=== PATIENT | male | born 1955 | race Caucasian/White ===

== ENCOUNTER 2017-06-21 21:32 | Emergency (ER) | END 2017-06-22 00:24 | disposition home or self-care (01) ==

== ENCOUNTER 2018-09-09 22:13 | Inpatient (IN) | payer OTHER ==
[~2018-09-09] VITALS: Ht 170.2 cm; Wt 55.2 kg
[~2018-09-09 22:13] MED LIST: DIC20 PO; ONDA4TAB14 PO
[2018-09-09] MEDS ORDERED: SOD CHLORIDE 0.9% 500 ML IV STA (23:42)
[2018-09-09] MEDS ORDERED: morphine 4 MG/ML VIAL IV STA (23:42)
[2018-09-09] MEDS ORDERED: ONDANSETRON 4 MG INJ IV STA (23:42)
[2018-09-10] MEDS ORDERED: morphine 4 MG/ML VIAL IV STA (03:29)
[2018-09-10] MEDS ORDERED: ONDANSETRON 4 MG INJ IV STA (03:29)
--- NOTE | 2018-09-10 05:18 | ERD ---
ER Documentation Chief Complaint Chief Complaint GENERALIZED AP X 1 DAY HPI Is a 7-year male generalized abdominal pain for 1 day. Said the pain is diffuse nontender nonlocalizing with no exacerbating alleviating factors. Denies any fevers or chills. Denies any nausea vomiting. Denies any other current issues. ROS All systems reviewed and are negative except as per history of present illness. Medications Home Meds Active Scripts Ondansetron (Ondansetron Odt) 4 Mg Tab.rapdis, 4 MG PO Q6H PRN for NAUSEA AND/OR VOMITING, #20 TAB Prov:MELISSA DIOP [employer] 06/21/17 Dicyclomine HCl (Dicyclomine HCl) 20 Mg Tablet, 1 TAB PO Q6, #20 Prov:MELISSA DIOP [employer] 06/21/17 Reported Medications [none] Unknown Strength No Conflict Check 06/21/17 Allergies Allergies: Coded Allergies: No Known Allergy (Unverified , 06/21/17) PMhx/Soc Medical and Surgical Hx: pt denies Medical Hx, pt denies Surgical Hx Hx Alcohol Use: No Hx Substance Use: No Hx Tobacco Use: Yes Smoking Status: Never smoker Physical Exam Vitals Vital Signs Date Temp Pulse Resp B/P (MAP) Pulse Ox O2 O2 Flow FiO2 Time Delivery Rate 09/10/18 57 16 149/80 98 Room Air 04:39 (103) 09/10/18 98.6 67 18 167/80 97 02:28 (109) 09/09/18 98.6 89 18 140/79 97 22:16 (99) Physical Exam Const: No acute distress Head: Atraumatic Eyes: Normal Conjunctiva ENT: Normal External Ears, Nose and Mouth. Neck: Full range of motion. No meningismus. Resp: Clear to auscultation bilaterally Cardio: Regular rate and rhythm, no murmurs Abd: Soft, non tender, non distended. Normal bowel sounds Skin: No petechiae or rashes Back: No midline or flank tenderness Ext: No cyanosis, or edema Neur: Awake and alert Psych: Normal Mood and Affect Result Diagram: 09/09/18 3546 09/09/18 1466 Results 24 hrs Laboratory Tests Test 09/09/18 23:48 09/09/18 23:51 White Blood Count 12.3 10^3/ul Red Blood Count 5.22 10^6/ul Hemoglobin 14.1 g/dl Hematocrit 39.7 % Mean Corpuscular Volume 76.1 fl Mean Corpuscular Hemoglobin 27.0 pg Mean Corpuscular Hemoglobin Concent 35.5 g/dl Red Cell Distribution Width 14.8 % Platelet Count 354 10^3/UL Mean Platelet Volume 9.3 fl Immature Granulocytes % 0.200 % Neutrophils % 70.2 % Lymphocytes % 14.2 % Monocytes % 8.3 % Eosinophils % 6.6 % Basophils % 0.5 % Nucleated Red Blood Cells % 0.0 /100WBC Immature Granulocytes # 0.030 10^3/ul Neutrophils # 8.7 10^3/ul Lymphocytes # 1.8 10^3/ul Monocytes # 1.0 10^3/ul Eosinophils # 0.8 10^3/ul Basophils # 0.1 10^3/ul Nucleated Red Blood Cells # 0.0 10^3/ul Urine Color YELLOW Urine Clarity SLIGHTLY CLOUDY Urine pH 5.0 Urine Specific [place] 1.024 Urine Ketones 1+ mg/dL Urine Nitrite NEGATIVE mg/dL Urine Bilirubin NEGATIVE mg/dL Urine Urobilinogen NEGATIVE mg/dL Urine Leukocyte Esterase NEGATIVE [place]/ul Urine Microscopic RBC 3 /HPF Urine Microscopic WBC 0 /HPF Urine Mucus FEW /HPF Urine Hemoglobin 2+ mg/dL Urine Glucose NEGATIVE mg/dL Urine Total Protein NEGATIVE mg/dl Sodium Level 136 mmol/L Potassium Level 4.3 mmol/L Chloride Level 102 mmol/L Carbon Dioxide Level 24 mmol/L Anion Gap 10 Blood Urea Nitrogen 12 mg/dl Creatinine 0.81 mg/dl Est Glomerular Filtrat Rate mL/min > 60 mL/min Glucose Level 121 mg/dl Calcium Level 9.6 mg/dl Total Bilirubin 0.5 mg/dl Direct Bilirubin 0.00 mg/dl Indirect Bilirubin 0.5 mg/dl Aspartate Amino Transf (AST/SGOT) 43 IU/L Alanine Aminotransferase (ALT/SGPT) 25 IU/L Alkaline Phosphatase 111 IU/L Total Protein 8.2 g/dl Albumin 4.6 g/dl Globulin 3.60 g/dl Albumin/Globulin Ratio 1.27 Lipase 68 U/L Current Medications Medications Dose Sig/Lester Start Time Status Last (Trade) Ordered Route PRN Stop Time Admin Dose Reason Admin Sodium 500 ml @ Q1H STAT 09/09/18 DC 6/10/19 Chloride 500 mls/hr IV 23:42 00:14 09/10/18 00:41 Morphine 4 mg ONCE STAT 09/09/18 DC 09/10/18 Sulfate IV 23:42 09/09/18 00:14 (morphine) 23:43 Ondansetron 4 mg ONCE STAT 09/09/18 DC 09/10/18 HCl (Zofran IV 23:42 09/09/18 00:14 Inj) 23:43 Morphine 4 mg ONCE STAT 09/10/18 DC 09/10/18 Sulfate IV 03:29 03:35 (morphine) 09/10/18 03:30 Ondansetron 4 mg ONCE STAT 09/10/18 DC 09/10/18 HCl (Zofran IV 03:29 03:35 Inj) 09/10/18 03:30 Procedures/MDM Chest X-ray 1V Interpreted by me: Soft Tissue: No acute a bnormalities Bones: No acute abnormalities Mediastinum/Cardiac Silhouette/Lungs: [No acute abnormalities] Medical decision makin male with diffuse intractable abdominal pain. Even with a negative CT, I feel the patient is admitted further evaluation management given his continued pain despite optimal pain medication therapy here in the ER. Hospitalist made aware of admission. Departure Diagnosis: Primary Impression: Abdominal pain Abdominal location: unspecified location Qualified Codes: R10.9 - Unspecified abdominal pain Condition: Serious DENNISE MA Sep 10, 2018 05:18
[2018-09-10] MEDS ORDERED: ACETAMINOPHEN 325 MG TAB PO PRN ×2 (05:30→06:00)
[2018-09-10] MEDS ORDERED: ONDANSETRON 4 MG INJ IV PRN ×2 (05:30→06:00)
--- NOTE | 2018-09-10 05:58 | HP ---
Date/Time of Note Date/Time of Note DATE: 09/10/18 TIME: 05:57 Assessment/Plan VTE Prophylaxis SCD applied (from Nsg): No SCD contraindicated: other Pharmacological prophylaxis: heparin Lines/Catheters IV Catheter Type (from Nrs): [place] Assessment/Plan Hospital Course A/P: 63-year male past medical history of possible gastroparesis, who complains of generalized abdominal pain for 1 day. 1. Abdominal pain: Again unclear what the sources since his CT scan did not show any acute findings. Patient does have a prior history of gastroparesis -Admit patient, continue pain control medications, check TSH A1c lipid panel -We will obtain GI consult order for stool occult test. Result Diagram: 09/09/18 1513 09/09/18 2351 Results 24hrs Laboratory Tests Test 09/09/18 23:48 09/09/18 23:51 White Blood Count 12.3 H Red Blood Count 5.22 # Hemoglobin 14.1 # Hematocrit 39.7 #L Mean Corpuscular Volume 76.1 L Mean Corpuscular Hemoglobin 27.0 L Mean Corpuscular Hemoglobin Concent 35.5 Red Cell Distribution Width 14.8 H Platelet Count 354 Mean Platelet Volume 9.3 Immature Granulocytes % 0.200 Neutrophils % 70.2 Lymphocytes % 14.2 L Monocytes % 8.3 Eosinophils % 6.6 Basophils % 0.5 Nucleated Red Blood Cells % 0.0 Immature Granulocytes # 0.030 Neutrophils # 8.7 H Lymphocytes # 1.8 Monocytes # 1.0 H Eosinophils # 0.8 H Basophils # 0.1 Nucleated Red Blood Cells # 0.0 Urine Color YELLOW Urine Clarity SLIGHTLY CLOUDY A Urine pH 5.0 Urine Specific [place] 1.024 Urine Ketones 1+ H Urine Nitrite NEGATIVE Urine Bilirubin NEGATIVE Urine Urobilinogen NEGATIVE Urine Leukocyte Esterase NEGATIVE Urine Microscopic RBC 3 Urine Microscopic WBC 0 Urine Mucus FEW A Urine Hemoglobin 2+ H Urine Glucose NEGATIVE Urine Total Protein NEGATIVE Sodium Level 136 Potassium Level 4.3 Chloride Level 102 Carbon Dioxide Level 24 Anion Gap 10 Blood Urea Nitrogen 12 Creatinine 0.81 Est Glomerular Filtrat Rate mL/min > 60 Glucose Level 121 Calcium Level 9.6 Total Bilirubin 0.5 Direct Bilirubin 0.00 Indirect Bilirubin 0.5 Aspartate Amino Transf (AST/SGOT) 43 Alanine Aminotransferase (ALT/SGPT) 25 Alkaline Phosphatase 111 Total Protein 8.2 H Albumin 4.6 Globulin 3.60 H Albumin/Globulin Ratio 1.27 Lipase 68 HPI/ROS Admit Date/Time Admit Date/Time Hx of Present Illness 63-year male past medical history of possible gastroparesis, who complains of generalized abdominal pain for 1 day. Patient stated the symptoms started sort of suddenly, had some nausea symptoms. No vomiting, no fevers or chills diarrhea constipation upper or lower GI bleeding, no chest pain shortness of breath. Patient describes the pain as diffuse nontender nonlocalizing with no exacerbating alleviating factors. When the patient came in today he had a CT scan abdomen pelvis performed that did not show any acute findings. His white blood cell count was slightly elevated however at 12.3. PMH/Family/Social Past Medical History Medications Current Medications Ondansetron HCl (Zofran Inj) 4 mg BRIDGE ORDER PRN IV NAUSEA/VOMITING; Start 09/10/18 at 05:30; Stop 09/11/18 at 05:29 Acetaminophen (Tylenol Tab) 650 mg ER BRIDGE PRN PO .MILD PAIN 1-3 OR TEMP; Start 09/10/18 at 05:30; Stop 09/11/18 at 05:29 IV Flush (NS 3 ml) 3 ml PER PROTOCOL IV ; Start 09/10/18 at 06:00; Status UNV Ondansetron HCl (Zofran Inj) 4 mg Q6H PRN IV NAUSEA/VOMITING; Start 09/10/18 at 06:00; Status UNV Acetaminophen (Tylenol Tab) 650 mg Q6H PRN PO .PAIN 1-3 OR TEMP; Start 09/10/18 at 06:00; Status UNV Acetaminophen/ Hydrocodone Bitart ([place] (5/325)) 1 tab Q6H PRN PO .MOD PAIN 4- 6; Start 09/10/18 at 06:00; Status UNV Morphine Sulfate (morphine) 2 mg Q4H PRN IV .SEVERE PAIN 7-10; Start 09/10/18 at 06:00; Status UNV Docusate Sodium (Colace) 100 mg Q12H PRN PO .CONSTIPATION; Start 09/10/18 at 06:00; Status UNV Magnesium Hydroxide (Milk Of Mag) 30 ml DAILY PRN PO .CONSTIPATION; Start 09/10/18 at 06:00; Status UNV Pantoprazole (Protonix Iv) 40 mg DAILY@06 IV ; Start 09/10/18 at 06:00; Status UNV Heparin Sodium (Porcine) (Heparin (5000 Units/1ml)) 5,000 unit Q12 SC ; Start 09/10/18 at 09:00; Status UNV Sodium Chloride 1,000 ml @ 75 mls/hr [id number] IV ; Start 09/10/18 at 05:49; Status UNV Lorazepam (Ativan) 0.5 mg Q6H PRN IV ANXIETY; Start 09/10/18 at 06:00; Status UNV Albuterol/ Ipratropium (Duoneb) 3 ml Q4H RESP THERAPY PRN HHN SHORTNESS OF BREATH; Start 09/10/18 at 06:00; Status UNV Hydralazine HCl (Apresoline) 10 mg Q6H PRN IV ELEVATED BLOOD PRESSURE; Start 09/10/18 at 06:00; Status UNV Nitroglycerin (Nitroglycerin (Sl Tab) 0.4 Mg) 1 tab Q5M PRN SL ANGINA; Start 09/10/18 at 06:00; Status UNV Coded Allergies: No Known Allergy (Unverified , 06/21/17) Social History Alcohol Use: none Smoking Status: Unknown if ever smoked Drug Use: none Exam/Review of Systems Vital Signs Vitals Vital Signs Date Temp Pulse Resp B/P (MAP) Pulse Ox O2 O2 Flow FiO2 Time Delivery Rate 09/10/18 57 16 149/80 98 Room Air 04:39 (103) 09/10/18 98.6 02:28 Exam Exam Gen: Lying in bed, no acute distress Head: Atraumatic. Eyes: Normal Conjunctiva. ENT: Normal External Ears, Nose and Mouth. Neck: Full range of motion. No meningismus. Resp: Clear to auscultation bilaterally. Cardio: Regular rate and rhythm. Abd: Soft, nondistended, normal bowel sounds, some tenderness to palpation epigastric area Ext: No lower extremity edema bilaterally Neuro: No focal deficits NADER DAN Sep 10, 2018 05:58
[2018-09-10] MEDS ORDERED: hydrALAzine 20 MG INJ IV PRN (06:00)
[2018-09-10] MEDS ORDERED: MAGNESIUM HYDROXIDE 30ML CUP PO PRN (06:00)
[2018-09-10] MEDS ORDERED: NITROGLYCERIN (SL) 0.4 MG TAB SL PRN (06:00)
[2018-09-10] MEDS ORDERED: FAMOTIDINE 20 MG INJ IV SCH (06:00)
[2018-09-10] MEDS ORDERED: DOCUSATE SODIUM 100 MG CAP PO PRN (06:00)
[2018-09-10] MEDS ORDERED: ALBUTEROL/IPRATROPIUM (NEB) 3 ML AMP HHN PRN (06:00)
[2018-09-10] MEDS ORDERED: LORAZEPAM 2 MG INJ IV PRN (06:00)
[2018-09-10] MEDS ORDERED: NACL 0.9% 3 ML SYG IV SCH (06:00)
[2018-09-10] MEDS: morphine 2 MG INJ IV PRN ×3 (06:57→20:49)
[2018-09-10 09:15] VITALS: BP 167/103; PULSE 60; RESP 18
[2018-09-10 09:30] VITALS: Ht 170.2 cm; Wt 55.2 kg
[2018-09-10] MEDS: SOD CHLORIDE 0.45% 1,000 ML IV SCH ×3 (09:58→23:47)
[2018-09-10 10:00] VITALS: BP 182/86; PULSE 68; RESP 18
[2018-09-10] MEDS: HEPARIN 5,000 UNIT/1 ML VIAL SC SCH ×2 (10:14→21:00)
[2018-09-10 10:30] VITALS: BP 114/68; PULSE 70; RESP 18
[2018-09-10 11:00] VITALS: BP 128/60; PULSE 66; RESP 18
--- NOTE | 2018-09-10 12:06 | PN ---
Date/Time of Note Date/Time of Note DATE: 09/10/18 TIME: 12:00 Assessment/Plan VTE Prophylaxis SCD applied (from Nsg): No SCD contraindicated: low risk/ambulating Pharmacological prophylaxis: NA/contraindicated Pharm contraindication: low risk/ambulating Lines/Catheters IV Catheter Type (from Nrsg): Peripheral IV Urinary Cath still in place: No Assessment/Plan Assessment/Plan 1. Acute abdominal pain - unsure etiology at this time - GI consulted for further recommendations - concern for gastroparesis but had BM this am without any issues - FOBT ordered but denies any dean blood in stool - CT A/P negative for acute abnormalities 2. ? h/o gastroparesis - A1c ordered to assess for Diabetes 3. Disposition - pending GI consultation - will start on clear diet and monitor for tolerance prior to advancing Result Diagram: 09/09/18 2348 09/09/18 2351 Results 24hrs Laboratory Tests Test 09/09/18 23:48 09/09/18 23:51 09/10/18 06:43 White Blood Count 12.3 H Red Blood Count 5.22 # Hemoglobin 14.1 # Hematocrit 39.7 #L Mean Corpuscular Volume 76.1 L Mean Corpuscular Hemoglobin 27.0 L Mean Corpuscular 35.5 Hemoglobin Concent Red Cell Distribution Width 14.8 H Platelet Count 354 Mean Platelet Volume 9.3 Immature Granulocytes % 0.200 Neutrophils % 70.2 Lymphocytes % 14.2 L Monocytes % 8.3 Eosinophils % 6.6 Basophils % 0.5 Nucleated Red Blood Cells % 0.0 Immature Granulocytes # 0.030 Neutrophils # 8.7 H Lymphocytes # 1.8 Monocytes # 1.0 H Eosinophils # 0.8 H Basophils # 0.1 Nucleated Red Blood Cells # 0.0 Urine Color YELLOW Urine Clarity SLIGHTLY CLOUDY A Urine pH 5.0 Urine Specific [place] 1.024 Urine Ketones 1+ H Urine Nitrite NEGATIVE Urine Bilirubin NEGATIVE Urine Urobilinogen NEGATIVE Urine Leukocyte Esterase NEGATIVE Urine Microscopic RBC 3 Urine Microscopic WBC 0 Urine Mucus FEW A Urine Hemoglobin 2+ H Urine Glucose NEGATIVE Urine Total Protein NEGATIVE Sodium Level 136 Potassium Level 4.3 Chloride Level 102 Carbon Dioxide Level 24 Anion Gap 10 Blood Urea Nitrogen 12 Creatinine 0.81 Est Glomerular Filtrat > 60 Rate mL/min Glucose Level 121 Calcium Level 9.6 Total Bilirubin 0.5 Direct Bilirubin 0.00 Indirect Bilirubin 0.5 Aspartate Amino 43 Transf (AST/SGOT) Alanine 25 Aminotransferase (ALT/SGPT) Alkaline Phosphatase 111 Total Protein 8.2 H Albumin 4.6 Globulin 3.60 H Albumin/Globulin Ratio 1.27 Lipase 68 Prothrombin Time 13.1 Prothrombin Time Ratio 1.0 INR International 0.98 Normalized Ratio Activated Partial Thromboplast 28.0 Time Free Thyroxine 1.15 Subjective 24 Hr Interval Summary Free Text/Dictation Patient states abdominal pain has improved slightly. Did admit to this am. Exam/Review of Systems Exam Vitals Vital Signs Date Temp Pulse Resp B/P (MAP) Pulse Ox O2 O2 Flow FiO2 Time Delivery Rate 09/10/18 98.9 72 16 166/72 98 Room Air 09:06 (103) Exam General: no acute distress. answering questions appropriately Neck: supple Chest: nontender CVS: S1, S2, regular rate and rhythm. no murmurs Lungs: clear to auscultation bilaterally. no wheezing or rhonchi Abd: soft, mild lower quadrant tenderness, nondistended. no rebound or guarding. bowel sounds present diffusely Ext: moving all extremities. no cyanosis, clubbing, or edema Skin: warm, dry. no rashes or lesions appreciated Results Results 24hrs Laboratory Tests Test 09/09/18 23:48 09/09/18 23:51 09/10/18 06:43 White Blood Count 12.3 H Red Blood Count 5.22 # Hemoglobin 14.1 # Hematocrit 39.7 #L Mean Corpuscular Volume 76.1 L Mean Corpuscular Hemoglobin 27.0 L Mean Corpuscular 35.5 Hemoglobin Concent Red Cell Distribution Width 14.8 H Platelet Count 354 Mean Platelet Volume 9.3 Immature Granulocytes % 0.200 Neutrophils % 70.2 Lymphocytes % 14.2 L Monocytes % 8.3 Eosinophils % 6.6 Basophils % 0.5 Nucleated Red Blood Cells % 0.0 Immature Granulocytes # 0.030 Neutrophils # 8.7 H Lymphocytes # 1.8 Monocytes # 1.0 H Eosinophils # 0.8 H Basophils # 0.1 Nucleated Red Blood Cells # 0.0 Urine Color YELLOW Urine Clarity SLIGHTLY CLOUDY A Urine pH 5.0 Urine Specific [place] 1.024 Urine Ketones 1+ H Urine Nitrite NEGATIVE Urine Bilirubin NEGATIVE Urine Urobilinogen NEGATIVE Urine Leukocyte Esterase NEGATIVE Urine Microscopic RBC 3 Urine Microscopic WBC 0 Urine Mucus FEW A Urine Hemoglobin 2+ H Urine Glucose NEGATIVE Urine Total Protein NEGATIVE Sodium Level 136 Potassium Level 4.3 Chloride Level 102 Carbon Dioxide Level 24 Anion Gap 10 Blood Urea Nitrogen 12 Creatinine 0.81 Est Glomerular Filtrat > 60 Rate mL/min Glucose Level 121 Calcium Level 9.6 Total Bilirubin 0.5 Direct Bilirubin 0.00 Indirect Bilirubin 0.5 Aspartate Amino 43 Transf (AST/SGOT) Alanine 25 Aminotransferase (ALT/SGPT) Alkaline Phosphatase 111 Total Protein 8.2 H Albumin 4.6 Globulin 3.60 H Albumin/Globulin Ratio 1.27 Lipase 68 Prothrombin Time 13.1 Prothrombin Time Ratio 1.0 INR International 0.98 Normalized Ratio Activated Partial Thromboplast 28.0 Time Free Thyroxine 1.15 Medications Medication Current Medications IV Flush (NS 3 ml) 3 ml PER PROTOCOL IV ; Start 09/10/18 at 06:00 Ondansetron HCl (Zofran Inj) 4 mg Q6H PRN IV NAUSEA/VOMITING; Start 09/10/18 at 06:00 Acetaminophen (Tylenol Tab) 650 mg Q6H PRN PO .PAIN 1-3 OR TEMP; Start 09/10/18 at 06:00 Acetaminophen/ Hydrocodone Bitart ([place] (5/325)) 1 tab Q6H PRN PO .MOD PAIN 4- 6; Start 09/10/18 at 06:00 Morphine Sulfate (morphine) 2 mg Q4H PRN IV .SEVERE PAIN 7-10 Last administered on 09/10/18at 11:45; Admin Dose 2 MG; Start 09/10/18 at 06:00 Docusate Sodium (Colace) 100 mg Q12H PRN PO .CONSTIPATION; Start 09/10/18 at 06:00 Magnesium Hydroxide (Milk Of Mag) 30 ml DAILY PRN PO .CONSTIPATION; Start 09/10/18 at 06:00 Famotidine (Pepcid Iv) 40 mg DAILY@06 IV ; Start 09/10/18 at 06:00 Heparin Sodium (Porcine) (Heparin (5000 Units/1ml)) 5,000 unit Q12 SC Last administered on 09/10/18at 10:14; Admin Dose 5,000 UNIT; Start 09/10/18 at 09:00 Sodium Chloride 1,000 ml @ 75 mls/hr [id number] IV Last administered on 09/10/18at 09:58; Admin Dose 75 MLS/HR; Start 09/10/18 at 05:49 Lorazepam (Ativan) 0.5 mg Q6H PRN IV ANXIETY; Start 09/10/18 at 06:00 Albuterol/ Ipratropium (Duoneb) 3 ml Q4H RESP THERAPY PRN HHN SHORTNESS OF BREATH; Start 09/10/18 at 06:00 Hydralazine HCl (Apresoline) 10 mg Q6H PRN IV ELEVATED BLOOD PRESSURE Last administered on 09/10/18at 10:17; Admin Dose 10 MG; Start 09/10/18 at 06:00 Nitroglycerin (Nitroglycerin (Sl Tab) 0.4 Mg) 1 tab Q5M PRN SL ANGINA; Start 09/10/18 at 06:00 NORMAN CUEVAS MD Sep 10, 2018 12:06
[2018-09-10 15:07] VITALS: BP 159/75; PULSE 82; RESP 19
[2018-09-10] MEDS: HYDROCODONE/APAP (5/325) TAB PO PRN ×2 (15:16→22:38)
--- NOTE | 2018-09-10 17:57 | CONS ---
Assessment/Plan Assessment/Plan Hospital Course (Demo Recall) Assessment: Epigastric pain - R/o PUD vs gastritis vs other Questionable history of gastroparesis Plan: Stop H2 iggy change to PPI Add Reglan 10 mg IV q6hrs Order gastric emptying study in am- pending results pt may need EGD in near future Patient seen in collaboration with Dr. Coyle CC: KAYLEIGH COYLE MD ; Consultation Date/Type/Reason Admit Date/Time Date of Consultation: Sep 10, 2018 Type of Consult GI Reason for Consultation Abdominal pain Date/Time of Note DATE: 09/10/18 TIME: 17:51 Hx of Present Illness This is a 63-year-old male some documentation of possible gastroparesis who presented to the hospital with complaints of epigastric pain x1 day. Patient states he woke up at 4:00 in the morning with severe epigastric pain however pain improved he is able to go to work during the day unfortunately the pain became progressively worsening came to the ED for further evaluation. Here work-up included a CT abdomen pelvis which showed no acute abnormalities identified within the abdomen and pelvis labs were obtained showing mild leukocytosis a WBC of 12.3, normal hemoglobin however he does have microcytic indices, INR is within normal limits and normal LFTs. Currently denies nausea/vomiting, melena, hematochezia, diarrhea, or constipation. He has never had an upper endoscopy. Patient states he had a colonoscopy about 5 years ago per patient results were negative. Review of Systems: A 12 system, review was conducted and is negative except as noted in the HPI or here. Past Medical History Home Meds Discontinued Reported Medications [none] Unknown Strength No Conflict Check 06/21/17 Discontinued Scripts Ondansetron (Ondansetron Odt) 4 Mg Tab.rapdis, 4 MG PO Q6H PRN for NAUSEA AND/OR VOMITING, #20 TAB Prov:MELISSA DIOP SHIPPING RECEIVING CLERK 06/21/17 Dicyclomine HCl (Dicyclomine HCl) 20 Mg Tablet, 1 TAB PO Q6, #20 Prov:MELISSA DIOP SHIPPING RECEIVING CLERK 06/21/17 Medications Current Medications IV Flush (NS 3 ml) 3 ml PER PROTOCOL IV ; Start 09/10/18 at 06:00 Ondansetron HCl (Zofran Inj) 4 mg Q6H PRN IV NAUSEA/VOMITING; Start 09/10/18 at 06:00 Acetaminophen (Tylenol Tab) 650 mg Q6H PRN PO .PAIN 1-3 OR TEMP; Start 09/10/18 at 06:00 Acetaminophen/ Hydrocodone Bitart ([place] (5/325)) 1 tab Q6H PRN PO .MOD PAIN 4- 6 Last administered on 09/10/18at 15:16; Admin Dose 1 TAB; Start 09/10/18 at 06:00 Morphine Sulfate (morphine) 2 mg Q4H PRN IV .SEVERE PAIN 7-10 Last administered on 09/10/18at 11:45; Admin Dose 2 MG; Start 09/10/18 at 06:00 Docusate Sodium (Colace) 100 mg Q12H PRN PO .CONSTIPATION; Start 09/10/18 at 06:00 Magnesium Hydroxide (Milk Of Mag) 30 ml DAILY PRN PO .CONSTIPATION; Start 09/10/18 at 06:00 Famotidine (Pepcid Iv) 40 mg DAILY@06 IV ; Start 09/10/18 at 06:00 Heparin Sodium (Porcine) (Heparin (5000 Units/1ml)) 5,000 unit Q12 SC Last administered on 09/10/18at 10:14; Admin Dose 5,000 UNIT; Start 09/10/18 at 09:00 Sodium Chloride 1,000 ml @ 75 mls/hr [id number] IV Last administered on 09/10/18at 09:58; Admin Dose 75 MLS/HR; Start 09/10/18 at 05:49 Lorazepam (Ativan) 0.5 mg Q6H PRN IV ANXIETY; Start 09/10/18 at 06:00 Albuterol/ Ipratropium (Duoneb) 3 ml Q4H RESP THERAPY PRN HHN SHORTNESS OF BREATH; Start 09/10/18 at 06:00 Hydralazine HCl (Apresoline) 10 mg Q6H PRN IV ELEVATED BLOOD PRESSURE Last administered on 09/10/18at 10:17; Admin Dose 10 MG; Start 09/10/18 at 06:00 Nitroglycerin (Nitroglycerin (Sl Tab) 0.4 Mg) 1 tab Q5M PRN SL ANGINA; Start 09/10/18 at 06:00 Allergies: Coded Allergies: No Known Allergy (Unverified , 09/10/18) Social History Alcohol Use: none Smoking Status: Current every day smoker Drug Use: none Exam/Review of Systems Exam Vitals Vital Signs Date Temp Pulse Resp B/P (MAP) Pulse Ox O2 O2 Flow FiO2 Time Delivery Rate 09/10/18 98.1 82 19 159/75 99 15:07 (103) 09/10/18 Room Air 09:06 Exam PHYSICAL EXAMINATION: GENERAL: Alert & oriented x 3, in no acute distress SKIN: No lesions. HEAD: Normocephalic, atraumatic, no tenderness. EYES: Pupils equal reactive to light , no discharge. EARS/NOSE AND THROAT: Ears normal, nose normal. NECK: Supple, no masses. CHEST: Inspection within normal limits. CARDIOVASCULAR: Heart: Regular rate and rhythm RESPIRATORY: Lungs clear to auscultation and percussion, no wheezing, no rubs GASTROINTESTINAL AND LIVER: Abdomen: Soft, epigastric tenderness, non-distended, no hernias, no masses, normoactive bowel sounds. Rectal: Deferred. EXTREMITIES: No cyanosis, clubbing or edema. Results Result Diagram: 09/09/18 2348 09/09/18 2351 Results 24hrs Laboratory Tests Test 09/09/18 23:48 09/09/18 23:51 09/10/18 06:43 White Blood Count 12.3 H Red Blood Count 5.22 # Hemoglobin 14.1 # Hematocrit 39.7 #L Mean Corpuscular Volume 76.1 L Mean Corpuscular Hemoglobin 27.0 L Mean Corpuscular 35.5 Hemoglobin Concent Red Cell Distribution Width 14.8 H Platelet Count 354 Mean Platelet Volume 9.3 Immature Granulocytes % 0.200 Neutrophils % 70.2 Lymphocytes % 14.2 L Monocytes % 8.3 Eosinophils % 6.6 Basophils % 0.5 Nucleated Red Blood Cells % 0.0 Immature Granulocytes # 0.030 Neutrophils # 8.7 H Lymphocytes # 1.8 Monocytes # 1.0 H Eosinophils # 0.8 H Basophils # 0.1 Nucleated Red Blood Cells # 0.0 Urine Color YELLOW Urine Clarity SLIGHTLY CLOUDY A Urine pH 5.0 Urine Specific [place] 1.024 Urine Ketones 1+ H Urine Nitrite NEGATIVE Urine Bilirubin NEGATIVE Urine Urobilinogen NEGATIVE Urine Leukocyte Esterase NEGATIVE Urine Microscopic RBC 3 Urine Microscopic WBC 0 Urine Mucus FEW A Urine Hemoglobin 2+ H Urine Glucose NEGATIVE Urine Total Protein NEGATIVE Sodium Level 136 Potassium Level 4.3 Chloride Level 102 Carbon Dioxide Level 24 Anion Gap 10 Blood Urea Nitrogen 12 Creatinine 0.81 Est Glomerular Filtrat > 60 Rate mL/min Glucose Level 121 Calcium Level 9.6 Total Bilirubin 0.5 Direct Bilirubin 0.00 Indirect Bilirubin 0.5 Aspartate Amino 43 Transf (AST/SGOT) Alanine 25 Aminotransferase (ALT/SGPT) Alkaline Phosphatase 111 Total Protein 8.2 H Albumin 4.6 Globulin 3.60 H Albumin/Globulin Ratio 1.27 Lipase 68 Prothrombin Time 13.1 Prothrombin Time Ratio 1.0 INR International 0.98 Normalized Ratio Activated Partial Thromboplast 28.0 Time Free Thyroxine 1.15 Medications Medication Current Medications IV Flush (NS 3 ml) 3 ml PER PROTOCOL IV ; Start 09/10/18 at 06:00 Ondansetron HCl (Zofran Inj) 4 mg Q6H PRN IV NAUSEA/VOMITING; Start 09/10/18 at 06:00 Acetaminophen (Tylenol Tab) 650 mg Q6H PRN PO .PAIN 1-3 OR TEMP; Start 09/10/18 at 06:00 Acetaminophen/ Hydrocodone Bitart ([place] (5/325)) 1 tab Q6H PRN PO .MOD PAIN 4- 6 Last administered on 09/10/18at 15:16; Admin Dose 1 TAB; Start 09/10/18 at 06:00 Morphine Sulfate (morphine) 2 mg Q4H PRN IV .SEVERE PAIN 7-10 Last administered on 09/10/18at 11:45; Admin Dose 2 MG; Start 09/10/18 at 06:00 Docusate Sodium (Colace) 100 mg Q12H PRN PO .CONSTIPATION; Start 09/10/18 at 06:00 Magnesium Hydroxide (Milk Of Mag) 30 ml DAILY PRN PO .CONSTIPATION; Start 09/10/18 at 06:00 Famotidine (Pepcid Iv) 40 mg DAILY@06 IV ; Start 09/10/18 at 06:00 Heparin Sodium (Porcine) (Heparin (5000 Units/1ml)) 5,000 unit Q12 SC Last adm inistered on 09/10/18at 10:14; Admin Dose 5,000 UNIT; Start 09/10/18 at 09:00 Sodium Chloride 1,000 ml @ 75 mls/hr [id number] IV Last administered on 09/10/18at 09:58; Admin Dose 75 MLS/HR; Start 09/10/18 at 05:49 Lorazepam (Ativan) 0.5 mg Q6H PRN IV ANXIETY; Start 09/10/18 at 06:00 Albuterol/ Ipratropium (Duoneb) 3 ml Q4H RESP THERAPY PRN HHN SHORTNESS OF BREATH; Start 09/10/18 at 06:00 Hydralazine HCl (Apresoline) 10 mg Q6H PRN IV ELEVATED BLOOD PRESSURE Last administered on 09/10/18at 10:17; Admin Dose 10 MG; Start 09/10/18 at 06:00 Nitroglycerin (Nitroglycerin (Sl Tab) 0.4 Mg) 1 tab Q5M PRN SL ANGINA; Start 09/10/18 at 06:00 SALTY POE Sep 10, 2018 17:56
[2018-09-10 19:46] VITALS: BP 139/70; PULSE 77; RESP 18
[2018-09-10] MEDS: METOCLOPRAMIDE 10 MG INJ IV SCH (23:47)
[2018-09-11] MEDS: ALBUTEROL/IPRATROPIUM (NEB) 3 ML AMP HHN SCH ×6 (00:24→20:07)
[2018-09-11 02:04] VITALS: BP 115/57; PULSE 83; RESP 18
[2018-09-11] MEDS: HYDROCODONE/APAP (5/325) TAB PO PRN ×4 (06:09→21:15)
[2018-09-11] MEDS: METOCLOPRAMIDE 10 MG INJ IV SCH ×3 (06:09→17:53)
[2018-09-11] MEDS: PANTOPRAZOLE (EC) 40 MG TAB PO SCH ×2 (06:09→17:53)
[2018-09-11 08:11] VITALS: BP 148/72; PULSE 77; RESP 20
--- NOTE | 2018-09-11 10:06 | PN ---
Date/Time of Note Date/Time of Note DATE: 09/11/18 TIME: 10:00 Assessment/Plan VTE Prophylaxis Risk score (from Ns)>0 risk: 4 SCD applied (from Ns): Yes Pharmacological prophylaxis: NA/contraindicated Pharm contraindication: low risk/ambulating Lines/Catheters [facility] Peripheral IV Urinary Cath still in place: No Assessment/Plan Assessment/Plan 1. Acute abdominal pain - GI consultation appreciated and gastric emptying study ordered to rule out gastroparesis - continue on supportive care - Reglan q6H - FOBT pending but no BM yet - CT A/P negative for acute abnormalities 2. ? h/o gastroparesis - A1c noted, 5.4 - Reglan on board 3. Disposition - Awaiting gastric emptying study. Further plan of care based on results. Result Diagram: 09/11/18 0431 09/11/18 0431 Results 24hrs Laboratory Tests Test 09/11/18 04:31 White Blood Count 10.1 Red Blood Count 5.11 Hemoglobin 13.6 L Hematocrit 38.4 L Mean Corpuscular Volume 75.1 L Mean Corpuscular Hemoglobin 26.6 L Mean Corpuscular Hemoglobin Concent 35.4 Red Cell Distribution Width 14.7 H Platelet Count 346 Mean Platelet Volume 9.5 Immature Granulocytes % 0.200 Neutrophils % 64.2 Lymphocytes % 24.9 Monocytes % 8.1 Eosinophils % 2.2 Basophils % 0.4 Nucleated Red Blood Cells % 0.0 Immature Granulocytes # 0.020 Neutrophils # 6.5 Lymphocytes # 2.5 Monocytes # 0.8 Eosinophils # 0.2 Basophils # 0.0 Nucleated Red Blood Cells # 0.0 Sodium Level 136 Potassium Level 4.1 Chloride Level 104 Carbon Dioxide Level 24 Anion Gap 8 Blood Urea Nitrogen 8 Creatinine 0.74 Est Glomerular Filtrat Rate mL/min > 60 Glucose Level 104 Hemoglobin A1c 5.4 Calcium Level 9.1 Phosphorus Level 3.4 Magnesium Level 2.0 Triglycerides Level 99 Cholesterol Level 215 H LDL Cholesterol, Calculated 155 HDL Cholesterol 40 Cholesterol/HDL Ratio 5.3 Thyroid Stimulating Hormone (TSH) 0.588 Subjective 24 Hr Interval Summary Free Text/Dictation Patient still with diffuse abdominal pain and states its the same as yesterday. Denies any nausea or vomiting. Exam/Review of Systems Exam Vitals Vital Signs Date Temp Pulse Resp B/P (MAP) Pulse Ox O2 O2 Flow FiO2 Time Delivery Rate 09/11/18 72 18 97 21 08:31 09/11/18 98.1 148/72 08:11 (97) 09/11/18 Room Air 02:04 Intake and Output 09/10/18 09/10/18 09/11/18 1515:00 23:00 07:00 IntakeIntake Total 0 ml 880 ml 950 ml BalanceBalance 0 ml 880 ml 950 ml Exam General: mild distress secondary to abdominal discomfort Chest: nontender CVS: S1, S2, regular rate and rhythm. no murmurs Lungs: clear to auscultation bilaterally. no wheezing or rhonchi Abd: soft, diffuse mild tenderness to palpation, nondistended. no rebound or guarding. bowel sounds present diffusely Ext: moving all extremities. no cyanosis, clubbing, or edema Skin: warm, dry. no rashes or lesions appreciated Results Results 24hrs Laboratory Tests Test 09/11/18 04:31 White Blood Count 10.1 Red Blood Count 5.11 Hemoglobin 13.6 L Hematocrit 38.4 L Mean Corpuscular Volume 75.1 L Mean Corpuscular Hemoglobin 26.6 L Mean Corpuscular Hemoglobin Concent 35.4 Red Cell Distribution Width 14.7 H Platelet Count 346 Mean Platelet Volume 9.5 Immature Granulocytes % 0.200 Neutrophils % 64.2 Lymphocytes % 24.9 Monocytes % 8.1 Eosinophils % 2.2 Basophils % 0.4 Nucleated Red Blood Cells % 0.0 Immature Granulocytes # 0.020 Neutrophils # 6.5 Lymphocytes # 2.5 Monocytes # 0.8 Eosinophils # 0.2 Basophils # 0.0 Nucleated Red Blood Cells # 0.0 Sodium Level 136 Potassium Level 4.1 Chloride Level 104 Carbon Dioxide Level 24 Anion Gap 8 Blood Urea Nitrogen 8 Creatinine 0.74 Est Glomerular Filtrat Rate mL/min > 60 Glucose Level 104 Hemoglobin A1c 5.4 Calcium Level 9.1 Phosphorus Level 3.4 Magnesium Level 2.0 Triglycerides Level 99 Cholesterol Level 215 H LDL Cholesterol, Calculated 155 HDL Cholesterol 40 Cholesterol/HDL Ratio 5.3 Thyroid Stimulating Hormone (TSH) 0.588 Medications Medication Current Medications IV Flush (NS 3 ml) 3 ml PER PROTOCOL IV ; Start 09/10/18 at 06:00 Ondansetron HCl (Zofran Inj) 4 mg Q6H PRN IV NAUSEA/VOMITING; Start 09/10/18 at 06:00 Acetaminophen (Tylenol Tab) 650 mg Q6H PRN PO .PAIN 1-3 OR TEMP; Start 09/10/18 at 06:00 Acetaminophen/ Hydrocodone Bitart ([place] (5/325)) 1 tab Q6H PRN PO .MOD PAIN 4- 6 Last administered on 09/11/18at 06:09; Admin Dose 1 TAB; Start 09/10/18 at 06:00 Morphine Sulfate (morphine) 2 mg Q4H PRN IV .SEVERE PAIN 7-10 Last administered on 09/10/18at 20:49; Admin Dose 2 MG; Start 09/10/18 at 06:00 Docusate Sodium (Colace) 100 mg Q12H PRN PO .CONSTIPATION; Start 09/10/18 at 06:00 Magnesium Hydroxide (Milk Of Mag) 30 ml DAILY PRN PO .CONSTIPATION; Start 09/10/18 at 06:00 Heparin Sodium (Porcine) (Heparin (5000 Units/1ml)) 5,000 unit Q12 SC Last administered on 09/10/18at 10:14; Admin Dose 5,000 UNIT; Start 09/10/18 at 09:00; Status Hold Sodium Chloride 1,000 ml @ 75 mls/hr [id number] IV Last administered on 09/10/18at 23:47; Admin Dose 75 MLS/HR; Start 09/10/18 at 05:49 Lorazepam (Ativan) 0.5 mg Q6H PRN IV ANXIETY; Start 09/10/18 at 06:00 Albuterol/ Ipratropium (Duoneb) 3 ml Q4H RESP THERAPY PRN HHN SHORTNESS OF BREATH; Start 09/10/18 at 06:00 Hydralazine HCl (Apresoline) 10 mg Q6H PRN IV ELEVATED BLOOD PRESSURE Last administered on 09/10/18at 10:17; Admin Dose 10 MG; Start 09/10/18 at 06:00 Nitroglycerin (Nitroglycerin (Sl Tab) 0.4 Mg) 1 tab Q5M PRN SL ANGINA; Start 09/10/18 at 06:00 Metoclopramide HCl (Reglan) 10 mg Q6 IV Last administered on 09/11/18at 06:09; Admin Dose 10 MG; Start 09/11/18 at 00:00 Pantoprazole (Protonix Tab) 40 mg BID@06,18 PO Last administered on 09/11/18at 06:09; Admin Dose 40 MG; Start 09/11/18 at 06:00 Albuterol/ Ipratropium (Duoneb) 3 ml Q4H RESP THERAPY HHN Last administered on 09/11/18at 08:30; Admin Dose 3 ML; Start 09/11/18 at 01:00; Stop 09/12/18 at 00:59 NORMAN CUEVAS MD Sep 11, 2018 10:06
--- NOTE | 2018-09-11 13:23 | PN ---
Date/Time of Note Date/Time of Note DATE: 09/11/18 TIME: 13:15 Assessment/Plan VTE Prophylaxis Risk score (from Nsg)>0 risk: 4 SCD applied (from Nsg): Yes Pharmacological prophylaxis: other (scds) Lines/Catheters IV Catheter Type (from Nrsg): Peripheral IV Urinary Cath still in place: No Assessment/Plan Hospital Course Assessment: Epigastric pain - R/o PUD vs gastritis vs other Questionable history of gastroparesis Plan: Continue PPI Reglan 10 mg IV q6hrs Gastric emptying study- pending Will tentatively plan for EGD tomorrow I reviewed risks/benefits of sedation and procedure pt verbalized understanding and is agreeable to procedure Patient seen in collaboration with Dr. Coyle Subjective: Course reviewed with nursing staff Patient interviewed and examined All labs, imaging and other results reviewed The patient resting in bed, states epigastric pain has slightly improved. Awaiting to go down to [place] for study. No over night events. PHYSICAL EXAMINATION: GENERAL: Alert & oriented x 3, in no acute distress SKIN: No lesions. HEAD: Normocephalic, atraumatic, no tenderness. EYES: Pupils equal reactive to light , no discharge. EARS/NOSE AND THROAT: Ears normal, nose normal. NECK: Supple, no masses. CHEST: Inspection within normal limits. CARDIOVASCULAR: Heart: Regular rate and rhythm RESPIRATORY: Lungs clear to auscultation and percussion, no wheezing, no rubs GASTROINTESTINAL AND LIVER: Abdomen: Soft, epigastric tenderness, non-distended, no hernias, no masses, normoactive bowel sounds. Rectal: Deferred. EXTREMITIES: No cyanosis, clubbing or edema. Result Diagram: 09/11/18 0431 09/11/18 0431 Results 24hrs Laboratory Tests Test 09/11/18 04:31 White Blood Count 10.1 Red Blood Count 5.11 Hemoglobin 13.6 L Hematocrit 38.4 L Mean Corpuscular Volume 75.1 L Mean Corpuscular Hemoglobin 26.6 L Mean Corpuscular Hemoglobin Concent 35.4 Red Cell Distribution Width 14.7 H Platelet Count 346 Mean Platelet Volume 9.5 Immature Granulocytes % 0.200 Neutrophils % 64.2 Lymphocytes % 24.9 Monocytes % 8.1 Eosinophils % 2.2 Basophils % 0.4 Nucleated Red Blood Cells % 0.0 Immature Granulocytes # 0.020 Neutrophils # 6.5 Lymphocytes # 2.5 Monocytes # 0.8 Eosinophils # 0.2 Basophils # 0.0 Nucleated Red Blood Cells # 0.0 Sodium Level 136 Potassium Level 4.1 Chloride Level 104 Carbon Dioxide Level 24 Anion Gap 8 Blood Urea Nitrogen 8 Creatinine 0.74 Est Glomerular Filtrat Rate mL/min > 60 Glucose Level 104 Hemoglobin A1c 5.4 Calcium Level 9.1 Phosphorus Level 3.4 Magnesium Level 2.0 Triglycerides Level 99 Cholesterol Level 215 H LDL Cholesterol, Calculated 155 HDL Cholesterol 40 Cholesterol/HDL Ratio 5.3 Thyroid Stimulating Hormone (TSH) 0.588 Exam/Review of Systems Exam Vitals Vital Signs Date Temp Pulse Resp B/P (MAP) Pulse Ox O2 O2 Flow FiO2 Time Delivery Rate 09/11/18 72 18 97 21 08:31 09/11/18 98.1 148/72 08:11 (97) 09/11/18 Room Air 02:04 Intake and Output 09/10/18 09/10/18 09/11/18 1515:00 23:00 07:00 IntakeIntake Total 0 ml 880 ml 950 ml BalanceBalance 0 ml 880 ml 950 ml Results Results 24hrs Laboratory Tests Test 09/11/18 04:31 White Blood Count 10.1 Red Blood Count 5.11 Hemoglobin 13.6 L Hematocrit 38.4 L Mean Corpuscular Volume 75.1 L Mean Corpuscular Hemoglobin 26.6 L Mean Corpuscular Hemoglobin Concent 35.4 Red Cell Distribution Width 14.7 H Platelet Count 346 Mean Platelet Volume 9.5 Immature Granulocytes % 0.200 Neutrophils % 64.2 Lymphocytes % 24.9 Monocytes % 8.1 Eosinophils % 2.2 Basophils % 0.4 Nucleated Red Blood Cells % 0.0 Immature Granulocytes # 0.020 Neutrophils # 6.5 Lymphocytes # 2.5 Monocytes # 0.8 Eosinophils # 0.2 Basophils # 0.0 Nucleated Red Blood Cells # 0.0 Sodium Level 136 Potassium Level 4.1 Chloride Level 104 Carbon Dioxide Level 24 Anion Gap 8 Blood Urea Nitrogen 8 Creatinine 0.74 Est Glomerular Filtrat Rate mL/min > 60 Glucose Level 104 Hemoglobin A1c 5.4 Calcium Level 9.1 Phosphorus Level 3.4 Magnesium Level 2.0 Triglycerides Level 99 Cholesterol Level 215 H LDL Cholesterol, Calculated 155 HDL Cholesterol 40 Cholesterol/HDL Ratio 5.3 Thyroid Stimulating Hormone (TSH) 0.588 Medications Medication Current Medications IV Flush (NS 3 ml) 3 ml PER PROTOCOL IV ; Start 09/10/18 at 06:00 Ondansetron HCl (Zofran Inj) 4 mg Q6H PRN IV NAUSEA/VOMITING; Start 09/10/18 at 06:00 Acetaminophen (Tylenol Tab) 650 mg Q6H PRN PO .PAIN 1-3 OR TEMP; Start 09/10/18 at 06:00 Acetaminophen/ Hydrocodone Bitart ([place] (5/325)) 1 tab Q6H PRN PO .MOD PAIN 4- 6 Last administered on 09/11/18at 12:24; Admin Dose 1 TAB; Start 09/10/18 at 06:00 Morphine Sulfate (morphine) 2 mg Q4H PRN IV .SEVERE PAIN 7-10 Last administered on 09/10/18at 20:49; Admin Dose 2 MG; Start 09/10/18 at 06:00 Docusate Sodium (Colace) 100 mg Q12H PRN PO .CONSTIPATION; Start 09/10/18 at 06:00 Magnesium Hydroxide (Milk Of Mag) 30 ml DAILY PRN PO .CONSTIPATION; Start 09/10/18 at 06:00 Heparin Sodium (Porcine) (Heparin (5000 Units/1ml)) 5,000 unit Q12 SC Last administered on 09/10/18at 10:14; Admin Dose 5,000 UNIT; Start 09/10/18 at 09:00; Status Hold Sodium Chloride 1,000 ml @ 75 mls/hr [id number] IV Last administered on 09/10/18at 23:47; Admin Dose 75 MLS/HR; Start 09/10/18 at 05:49 Lorazepam (Ativan) 0.5 mg Q6H PRN IV ANXIETY; Start 09/10/18 at 06:00 Albuterol/ Ipratropium (Duoneb) 3 ml Q4H RESP THERAPY PRN HHN SHORTNESS OF BREATH; Start 09/10/18 at 06:00 Hydralazine HCl (Apresoline) 10 mg Q6H PRN IV ELEVATED BLOOD PRESSURE Last administered on 09/10/18at 10:17; Admin Dose 10 MG; Start 09/10/18 at 06:00 Nitroglycerin (Nitroglycerin (Sl Tab) 0.4 Mg) 1 tab Q5M PRN SL ANGINA; Start 09/10/18 at 06:00 Metoclopramide HCl (Reglan) 10 mg Q6 IV Last administered on 09/11/18at 12:23; Admin Dose 10 MG; Start 09/11/18 at 00:00 Pantoprazole (Protonix Tab) 40 mg BID@06,18 PO Last administered on 09/11/18at 06:09; Admin Dose 40 MG; Start 09/11/18 at 06:00 Albuterol/ Ipratropium (Duoneb) 3 ml Q4H RESP THERAPY HHN Last administered on 09/11/18at 08:30; Admin Dose 3 ML; Start 09/11/18 at 01:00; Stop 09/12/18 at 0 0:59 SALTY POE Sep 11, 2018 13:23
[2018-09-11 15:20] VITALS: BP 123/58; PULSE 65; RESP 20
[2018-09-11] MEDS: SOD CHLORIDE 0.45% 1,000 ML IV SCH (18:27)
[2018-09-11 19:42] VITALS: BP 146/67; PULSE 68; RESP 18
[2018-09-11] MEDS: morphine 2 MG INJ IV PRN (21:48)
[2018-09-12] VITALS (12 sets, daily range): BP systolic 106–175; BP diastolic 62–85; PULSE 59–88; RESP 9–29
[2018-09-12] MEDS ORDERED: HYDROmorphONE 1 MG/ML SYG IV ONE (00:45)
[2018-09-12] MEDS: METOCLOPRAMIDE 10 MG INJ IV SCH ×2 (00:51→05:17)
[2018-09-12] MEDS: morphine 2 MG INJ IV PRN ×3 (05:17→23:01)
[2018-09-12] MEDS: PANTOPRAZOLE (EC) 40 MG TAB PO SCH ×3 (05:21→20:53)
[2018-09-12] MEDS: HYDROCODONE/APAP (5/325) TAB PO PRN ×2 (07:37→13:05)
--- NOTE | 2018-09-12 08:55 | PN ---
Date/Time of Note Date/Time of Note DATE: 09/12/18 TIME: 08:49 Assessment/Plan VTE Prophylaxis Risk score (from Nsg)>0 risk: 3 SCD applied (from Nsg): Yes Pharmacological prophylaxis: NA/contraindicated Pharm contraindication: low risk/ambulating Lines/Catheters IV Catheter Type (from Nrsg): Peripheral IV Urinary Cath still in place: No Assessment/Plan Assessment/Plan 1. Acute abdominal pain - still with no improvement in LLQ pain and states radiates to L flank - Gastric emptying study is negative - GI consultation appreciated and tentative plans for EGD today - CT A/P negative for acute abnormalities. May need CT A/P with contrast if EGD negative. Will discuss with GI 2. ? h/o gastroparesis - A1c noted, 5.4 - Reglan d/c given nl gastric emptying study 3. Disposition - EGD planned for today Result Diagram: 09/12/18 0432 09/12/18 0432 Results 24hrs Laboratory Tests Test 09/12/18 04:32 White Blood Count 9.1 Red Blood Count 5.00 Hemoglobin 13.3 L Hematocrit 37.3 L Mean Corpuscular Volume 74.6 L Mean Corpuscular Hemoglobin 26.6 L Mean Corpuscular Hemoglobin Concent 35.7 Red Cell Distribution Width 14.9 H Platelet Count 357 Mean Platelet Volume 9.6 Immature Granulocytes % 0.200 Neutrophils % 65.0 Lymphocytes % 21.3 Monocytes % 9.1 Eosinophils % 3.7 Basophils % 0.7 Nucleated Red Blood Cells % 0.0 Immature Granulocytes # 0.020 Neutrophils # 5.9 Lymphocytes # 2.0 Monocytes # 0.8 Eosinophils # 0.3 Basophils # 0.1 Nucleated Red Blood Cells # 0.0 Sodium Level 139 Potassium Level 3.9 Chloride Level 105 Carbon Dioxide Level 26 Anion Gap 8 Blood Urea Nitrogen 8 Creatinine 0.71 Est Glomerular Filtrat Rate mL/min > 60 Glucose Level 92 Calcium Level 8.8 Subjective 24 Hr Interval Summary Free Text/Dictation Patient still with LLQ and flank pain but denies any nausea, vomiting, or urinary issues. No acute overnight events. No BM this am. Exam/Review of Systems Exam Vitals Vital Signs Date Temp Pulse Resp B/P (MAP) Pulse Ox O2 O2 Flow FiO2 Time Delivery Rate 09/12/18 98.6 64 20 158/75 96 Room Air 07:10 (102) 6/11/19 21 20:07 Intake and Output 09/11/18 09/11/18 09/12/18 1515:00 23:00 07:00 IntakeIntake Total 1240 ml 800 ml BalanceBalance 1240 ml 800 ml Exam General: no acute distress. answering questions appropriately Chest: nontender CVS: S1, S2, regular rate and rhythm. no murmurs Lungs: clear to auscultation bilaterally. no wheezing or rhonchi Abd: soft, LLQ tenderness to palpation, left flank discomfort, nondistended. no rebound or guarding. bowel sounds present diffusely Ext: moving all extremities. no cyanosis, clubbing, or edema Skin: warm, dry. no rashes or lesions appreciated Results Results 24hrs Laboratory Tests Test 09/12/18 04:32 White Blood Count 9.1 Red Blood Count 5.00 Hemoglobin 13.3 L Hematocrit 37.3 L Mean Corpuscular Volume 74.6 L Mean Corpuscular Hemoglobin 26.6 L Mean Corpuscular Hemoglobin Concent 35.7 Red Cell Distribution Width 14.9 H Platelet Count 357 Mean Platelet Volume 9.6 Immature Granulocytes % 0.200 Neutrophils % 65.0 Lymphocytes % 21.3 Monocytes % 9.1 Eosinophils % 3.7 Basophils % 0.7 Nucleated Red Blood Cells % 0.0 Immature Granulocytes # 0.020 Neutrophils # 5.9 Lymphocytes # 2.0 Monocytes # 0.8 Eosinophils # 0.3 Basophils # 0.1 Nucleated Red Blood Cells # 0.0 Sodium Level 139 Potassium Level 3.9 Chloride Level 105 Carbon Dioxide Level 26 Anion Gap 8 Blood Urea Nitrogen 8 Creatinine 0.71 Est Glomerular Filtrat Rate mL/min > 60 Glucose Level 92 Calcium Level 8.8 Medications Medication Current Medications IV Flush (NS 3 ml) 3 ml PER PROTOCOL IV ; Start 09/10/18 at 06:00 Ondansetron HCl (Zofran Inj) 4 mg Q6H PRN IV NAUSEA/VOMITING; Start 09/10/18 at 06:00 Acetaminophen (Tylenol Tab) 650 mg Q6H PRN PO .PAIN 1-3 OR TEMP; Start 09/10/18 at 06:00 Morphine Sulfate (morphine) 2 mg Q4H PRN IV .SEVERE PAIN 7-10 Last administered on 09/12/18at 05:17; Admin Dose 2 MG; Start 09/10/18 at 06:00 Docusate Sodium (Colace) 100 mg Q12H PRN PO .CONSTIPATION; Start 09/10/18 at 06:00 Magnesium Hydroxide (Milk Of Mag) 30 ml DAILY PRN PO .CONSTIPATION; Start 09/10/18 at 06:00 Heparin Sodium (Porcine) (Heparin (5000 Units/1ml)) 5,000 unit Q12 SC Last administered on 09/10/18at 10:14; Admin Dose 5,000 UNIT; Start 09/10/18 at 09:00; Status Hold Sodium Chloride 1,000 ml @ 75 mls/hr [id number] IV Last administered on 09/11/18 18:27; Admin Dose 75 MLS/HR; Start 09/10/18 at 05:49 Lorazepam (Ativan) 0.5 mg Q6H PRN IV ANXIETY; Start 09/10/18 at 06:00 Albuterol/ Ipratropium (Duoneb) 3 ml Q4H RESP THERAPY PRN HHN SHORTNESS OF BREATH; Start 09/10/18 at 06:00 Hydralazine HCl (Apresoline) 10 mg Q6H PRN IV ELEVATED BLOOD PRESSURE Last administered on 09/10/18 10:17; Admin Dose 10 MG; Start 09/10/18 at 06:00 Nitroglycerin (Nitroglycerin (Sl Tab) 0.4 Mg) 1 tab Q5M PRN SL ANGINA; Start 09/10/18 at 06:00 Metoclopramide HCl (Reglan) 10 mg Q6 IV Last administered on 09/12/18 05:17; Admin Dose 10 MG; Start 09/11/18 at 00:00 Pantoprazole (Protonix Tab) 40 mg BID@,18 PO Last administered on 09/11/18 17:53; Admin Dose 40 MG; Start 09/11/18 at 06:00 Acetaminophen/ Hydrocodone Bitart ([place] (5/325)) 1 tab Q4H PRN PO .MOD PAIN 4- 6 Last administered on 09/12/18 07:37; Admin Dose 1 TAB; Start 09/11/18 at 22:00 NORMAN CUEVAS MD Sep 12, 2018 08:54
[2018-09-12] MEDS: SOD CHLORIDE 0.45% 1,000 ML IV SCH (10:05)
--- NOTE | 2018-09-12 11:44 | PREAC ---
Date/Time of Note Date/Time of Note DATE: 09/12/18 TIME: 11:44 Anesthesia Eval and Record Evaluation Time Pre-Procedure Interview DATE: 09/12/18 TIME: 11:44 Age 63 Sex male NPO: 8 hrs Preoperative diagnosis abdominal pain Planned procedure EGD Past Medical History Past Medical History: Includes Pulm: COPD Surgery & Anesthesia Issues No known issue Meds Anticoagulation: No Beta Charlie within 24 hr: No Reason Beta Charlie not given: Pt. not on B-Charlie Discontinued Reported Medications [none] Unknown Strength No Conflict Check 06/21/17 Discontinued Scripts Ondansetron (Ondansetron Odt) 4 Mg Tab.rapdis, 4 MG PO Q6H PRN for NAUSEA AND/OR VOMITING, #20 TAB Prov:MELISSA DIOP WASTE DISPOSAL PLANT OPERATOR 06/21/17 Dicyclomine HCl (Dicyclomine HCl) 20 Mg Tablet, 1 TAB PO Q6, #20 Prov:MELISSA DIOP WASTE DISPOSAL PLANT OPERATOR 06/21/17 Current Medications IV Flush (NS 3 ml) 3 ml PER PROTOCOL IV ; Start 09/10/18 at 06:00 Ondansetron HCl (Zofran Inj) 4 mg Q6H PRN IV NAUSEA/VOMITING; Start 09/10/18 at 06:00 Acetaminophen (Tylenol Tab) 650 mg Q6H PRN PO .PAIN 1-3 OR TEMP; Start 09/10/18 at 06:00 Morphine Sulfate (morphine) 2 mg Q4H PRN IV .SEVERE PAIN 7-10 Last administered on 09/12/18at 10:05; Admin Dose 2 MG; Start 09/10/18 at 06:00 Docusate Sodium (Colace) 100 mg Q12H PRN PO .CONSTIPATION; Start 09/10/18 at 06:00 Magnesium Hydroxide (Milk Of Mag) 30 ml DAILY PRN PO .CONSTIPATION; Start 09/10/18 at 06:00 Heparin Sodium (Porcine) (Heparin (5000 Units/1ml)) 5,000 unit Q12 SC Last administered on 09/10/18at 10:14; Admin Dose 5,000 UNIT; Start 09/10/18 at 09:00; Status Hold Sodium Chloride 1,000 ml @ 75 mls/hr [id number] IV Last administered on 09/12/18at 10:05; Admin Dose 75 MLS/HR; Start 09/10/18 at 05:49 Lorazepam (Ativan) 0.5 mg Q6H PRN IV ANXIETY; Start 09/10/18 at 06:00 Albuterol/ Ipratropium (Duoneb) 3 ml Q4H RESP THERAPY PRN HHN SHORTNESS OF BREATH Last administered on 09/12/18at 09:08; Admin Dose 3 ML; Start 09/10/18 at 06:00 Hydralazine HCl (Apresoline) 10 mg Q6H PRN IV ELEVATED BLOOD PRESSURE Last administered on 09/10/18at 10:17; Admin Dose 10 MG; Start 09/10/18 at 06:00 Nitroglycerin (Nitroglycerin (Sl Tab) 0.4 Mg) 1 tab Q5M PRN SL ANGINA; Start 09/10/18 at 06:00 Pantoprazole (Protonix Tab) 40 mg BID@06,18 PO Last administered on 09/11/18at 17:53; Admin Dose 40 MG; Start 09/11/18 at 06:00 Acetaminophen/ Hydrocodone Bitart ([place] (5/325)) 1 tab Q4H PRN PO .MOD PAIN 4- 6 Last administered on 09/12/18at 07:37; Admin Dose 1 TAB; Start 09/11/18 at 22:00 Meds reviewed: Yes Allergies Coded Allergies: No Known Allergy (Unverified , 09/10/18) Allergies Reviewed: Yes Labs/Studies Labs Reviewed: Reviewed by anesthesiologist Result Diagram: 09/12/18 0432 09/12/18 0432 Laboratory Tests 09/12/18 04:32 test: N/A Studies: CXR (Hyperinflation of COPD with changes centrolobular emphysema. Mild paraseptal emphysema is seen at the right lung base.) Pre-procedure Exam Last vitals Vital Signs Date Temp Pulse Resp B/P (MAP) Pulse Ox O2 O2 Flow FiO2 Time Delivery Rate 09/12/18 66 20 97 21 09:08 09/12/18 98.6 158/75 Room Air 07:10 (102) Airway: Adequate mouth opening Mallampati: Mallampati II Teeth: Normal Lung: Normal Heart: Normal ASA Physical Status ASA physical status: 2 Emergency: None Planned Anesthetic General/MAC: MAC Pre-operative Attestations Prior to commencing anesthesia and surgery, the patient was re-evaluated, there was verification of: *The patient's identity *The results of appropriate recent lab work and preoperative vital signs *The above evaluation not changing prior to induction *Anesthetic plan, risk benefits, alternative and complications discussed with patient/family; questions answered; patient/family understands, accepts and wishes to proceed. CARROL BOYKIN Sep 12, 2018 11:44
--- NOTE | 2018-09-12 12:29 | RADRPT ---
Vent Rate: 65 bpm RR Interval: 920 msec [place] Interval: 133 msec QRS Duration: 100 msec QT Interval: 420 msec QTC Interval: 438 msec P-R-T [place]: 87 - 83 - 85 degrees Sinus rhythm...normal P axis, V-rate 50- 99 ST elevation, consider anterior injury...ST >0.15mV, V1-V5 Electronically Signed By: Ruy Ivan
[2018-09-12] MEDS ORDERED: PROPOFOL 40 ML ONE (18:02)
[2018-09-12] MEDS ORDERED: LIDOCAINE 2% (SDV) 5 ML INJ ONE (18:02)
--- NOTE | 2018-09-12 18:26 | PAC ---
Date/Time of Note Date/Time of Note DATE: 09/12/18 TIME: 18:25 Post-Anesthesia Notes Post-Anesthesia Note Last documented vital signs Vital Signs Date Temp Pulse Resp B/P (MAP) Pulse Ox O2 O2 Flow FiO2 Time Delivery Rate 09/12/18 98.0 59 18 175/74 98 Room Air 17:29 (107) 09/12/18 21 09:08 Activity: WNL Respiratory function: WNL Cardiovascular function: WNL Mental status: Baseline Pain reasonably controlled: Yes Hydration appropriate: Yes Nausea/Vomiting absent: Yes Comments BP:112/67, P;78, Spo2;100%, T:98,8 HOLDEN GEE MD Sep 12, 2018 18:26
--- NOTE | 2018-09-12 18:47 | OPPN ---
Date/Time of Note Date/Time of Note DATE: 09/12/18 TIME: 18:44 Proc Note GI Procedure Date 09/12/18 Indication: diagnostic, treatment Pre-procedure Diagnosis Abdominal pain/nausea Post-procedure Diagnosis Impression: Small grade 1/4 esophageal varices. Mild distal esophagitis. Moderate gastritis. Rule out H. pylori infection. Biopsies obtained. Otherwise normal EGD. Plan: PPI therapy. Advance diet. Procedure Performed: Endoscopy (Biopsies) Surgeon KAYLEIGH AMEZCUA MD See signature line Data Center Manager none Anesthesia Type: MAC Anesthesiologist: HOLDEN GEE MD Tourniquet Time none EBL none Transfusion required none Biopsy 1: Gastric body and antrum Grafts/Implants none Tubes/Drains none Complication(s) none Disposition: PACU Procedure Description After informed consent, with the patient/relatives understanding the procedure, its indications, potential risks and complications, including but not limited to: allergic reaction, bleeding, perforation or infection, and after all pertinent questions were answered to the patients satisfaction, the patient/relatives signed witnessed informed consent. Following this, premedication was administered slowly IV push under careful cardiovascular and respiratory monitoring with pulse oximetry, automatic blood pressure, and grain wafer machine operator. Once the sedative effect was achieved the patient was place in the left lateral decubitus, the panendoscope was introduced and advanced under visual control. Careful examination of the upper gastrointestinal tract, both on insertion as well as withdrawal of the instrument disclosing the following findings: ESOPHAGUS: the mucosa of the entire esophagus was carefully examined and showed the following findings: There are grade 1 #4 esophageal varices requiring no intervention. There is mild erythema and edema the mucosa of the distal esophagus. Otherwise the mucosa appears within normal limits. There is no evidence of neoplasm, or stricture. No Hiatal Hernia identified. STOMACH: Upon entrance to the stomach air was insufflated, the gastric magdaleno distended normally. The mucosa of the fundus, body and antrum of the stomach was carefully examined both head-on and on retroflexion, and showed the following findings: There is moderate erythema and edema the mucosa of the body and antrum the stomach. Biopsies were obtained to rule out H. pylori infection. Otherwise the mucosa appears within normal limits with no abnormalities. There is no evidence of ulcers or neoplasm. PYLORUS: The pylorus was carefully examined and showed the following findings: the pylorus appears patent and within normal limits, with no evidence of gastric outlet obstruction. DUODENUM: The duodenal mucosa was carefully examined in the duodenal bulb as well as the second portion of the duodenum and showed the following findings: the mucosa appears unremarkable with no evidence of duodenitis, ulcer or neoplasm. Copies To: CC: KAYLEIGH AMEZCUA MD ; KAYLEIGH AMEZCUA MD Sep 12, 2018 18:47
[2018-09-13] MEDS: SOD CHLORIDE 0.45% 1,000 ML IV SCH (00:29)
[2018-09-13] MEDS: HYDROCODONE/APAP (5/325) TAB PO PRN (00:36)
[2018-09-13 02:05] VITALS: BP 142/70; PULSE 70; RESP 20
[2018-09-13 07:34] VITALS: BP 152/75; PULSE 66; RESP 20
--- NOTE | 2018-09-13 11:29 | PN ---
Date/Time of Note Date/Time of Note DATE: 09/13/18 TIME: 11:27 Assessment/Plan VTE Prophylaxis Risk score (from Ns)>0 risk: 2 SCD applied (from Ns): Yes Pharmacological prophylaxis: NA/contraindicated Pharm contraindication: low risk/ambulating Lines/Catheters IV [facility] (from [facility]): Peripheral IV Urinary Cath still in place: No Assessment/Plan Assessment/Plan 1. Acute esophagitis and moderate gastritis - seen on EGD on 09/12 - continue on PPI - Gastric emptying study is negative - GI consultation appreciated 2. ? h/o gastroparesis - A1c noted, 5.4 - Reglan d/c given nl gastric emptying study 3. Disposition - If tolerating diet, will d/c home Result Diagram: 09/13/1843709/13/18437 Results 24hrs Laboratory Tests Test 09/13/18 04:38 White Blood Count 8.6 Red Blood Count 4.93 Hemoglobin 13.3 L Hematocrit 37.1 L Mean Corpuscular Volume 75.3 L Mean Corpuscular Hemoglobin 27.0 L Mean Corpuscular Hemoglobin Concent 35.8 Red Cell Distribution Width 14.6 H Platelet Count 373 Mean Platelet Volume 9.5 Immature Granulocytes % 0.200 Neutrophils % 56.0 Lymphocytes % 27.4 Monocytes % 9.7 Eosinophils % 5.8 Basophils % 0.9 Nucleated Red Blood Cells % 0.0 Immature Granulocytes # 0.020 Neutrophils # 4.8 Lymphocytes # 2.3 Monocytes # 0.8 Eosinophils # 0.5 Basophils # 0.1 Nucleated Red Blood Cells # 0.0 Sodium Level 137 Potassium Level 4.2 Chloride Level 104 Carbon Dioxide Level 24 Anion Gap 9 Blood Urea Nitrogen 10 Creatinine 0.74 Est Glomerular Filtrat Rate mL/min > 60 Glucose Level 84 Calcium Level 9.3 Subjective 24 Hr Interval Summary Free Text/Dictation Patient states he's feeling better and tolerating clear diet. No acute overnight events. Exam/Review of Systems Exam Vitals Vital Signs Date Temp Pulse Resp B/P (MAP) Pulse Ox O2 O2 Flow FiO2 Time Delivery Rate 09/13/18 98.5 66 20 152/75 95 Room Air 07:34 (100) 09/12/18 21 09:08 Intake and Output 09/12/18 09/12/18 09/13/18 1515:00 23:00 07:00 IntakeIntake Total 200 ml 500 ml 750 ml BalanceBalance 200 ml 500 ml 750 ml Exam General: no acute distress. answering questions appropriately Chest: nontender CVS: S1, S2, regular rate and rhythm. no murmurs Lungs: clear to auscultation bilaterally. no wheezing or rhonchi Abd: soft, mild tenderness, nondistended. no rebound or guarding. bowel sounds present diffusely Ext: moving all extremities. no cyanosis, clubbing, or edema Skin: warm, dry. no rashes or lesions appreciated Results Results 24hrs Laboratory Tests Test 09/13/18 04:38 White Blood Count 8.6 Red Blood Count 4.93 Hemoglobin 13.3 L Hematocrit 37.1 L Mean Corpuscular Volume 75.3 L Mean Corpuscular Hemoglobin 27.0 L Mean Corpuscular Hemoglobin Concent 35.8 Red Cell Distribution Width 14.6 H Platelet Count 373 Mean Platelet Volume 9.5 Immature Granulocytes % 0.200 Neutrophils % 56.0 Lymphocytes % 27.4 Monocytes % 9.7 Eosinophils % 5.8 Basophils % 0.9 Nucleated Red Blood Cells % 0.0 Immature Granulocytes # 0.020 Neutrophils # 4.8 Lymphocytes # 2.3 Monocytes # 0.8 Eosinophils # 0.5 Basophils # 0.1 Nucleated Red Blood Cells # 0.0 Sodium Level 137 Potassium Level 4.2 Chloride Level 104 Carbon Dioxide Level 24 Anion Gap 9 Blood Urea Nitrogen 10 Creatinine 0.74 Est Glomerular Filtrat Rate mL/min > 60 Glucose Level 84 Calcium Level 9.3 Medications Medication Current Medications IV Flush (NS 3 ml) 3 ml PER PROTOCOL IV ; Start 09/10/18 at 06:00 Ondansetron HCl (Zofran Inj) 4 mg Q6H PRN IV NAUSEA/VOMITING; Start 09/10/18 at 06:00 Acetaminophen (Tylenol Tab) 650 mg Q6H PRN PO .PAIN 1-3 OR TEMP; Start 09/10/18 at 06:00 Morphine Sulfate (morphine) 2 mg Q4H PRN IV .SEVERE PAIN 7-10 Last administered on 09/12/18at 23:01; Admin Dose 2 MG; Start 09/10/18 at 06:00 Docusate Sodium (Colace) 100 mg Q12H PRN PO .CONSTIPATION; Start 09/10/18 at 06:00 Magnesium Hydroxide (Milk Of Mag) 30 ml DAILY PRN PO .CONSTIPATION; Start 09/10/18 at 06:00 Heparin Sodium (Porcine) (Heparin (5000 Units/1ml)) 5,000 unit Q12 SC Last administered on 09/10/18at 10:14; Admin Dose 5,000 UNIT; Start 09/10/18 at 09:00; Status Hold Lorazepam (Ativan) 0.5 mg Q6H PRN IV ANXIETY; Start 09/10/18 at 06:00 Albuterol/ Ipratropium (Duoneb) 3 ml Q4H RESP THERAPY PRN HHN SHORTNESS OF BREATH Last administered on 09/12/18 09:08; Admin Dose 3 ML; Start 09/10/18 at 06:00 Hydralazine HCl (Apresoline) 10 mg Q6H PRN IV ELEVATED BLOOD PRESSURE Last administered on 09/10/18at 10:17; Admin Dose 10 MG; Start 09/10/18 at 06:00 Nitroglycerin (Nitroglycerin (Sl Tab) 0.4 Mg) 1 tab Q5M PRN SL ANGINA; Start 09/10/18 at 06:00 Pantoprazole (Protonix Tab) 40 mg BID@06,18 PO Last administered on 09/12/18at 20:53; Admin Dose 40 MG; Start 09/11/18 at 06:00 Acetaminophen/ Hydrocodone Bitart ([place] (5/325)) 1 tab Q4H PRN PO .MOD PAIN 4- 6 Last administered on 09/13/18 00:36; Admin Dose 1 TAB; Start 09/11/18 at 22:00 NORMAN CUEVAS MD Sep 13, 2018 11:29
[2018-09-13] MEDS ORDERED: HYDR-3601 PO (11:33)
[2018-09-13] MEDS ORDERED: PANT40TA4 PO (11:33)
--- NOTE | 2018-09-13 11:38 | PDOCDIS ---
Discharge Instructions DIAGNOSIS Discharge Diagnosis 1. Mild esophagitis and moderate gastritis CONDITION [id number] Patient Condition: [id number] Stable HOME CARE INSTRUCTIONS: [id number] Diet Instructions: [id number] Low Fat /Cholesterol ACTIVITY: [id number] Activity Restrictions: [id number] No Restrictions FOLLOW UP/APPOINTMENTS Follow-up Plan 1. Follow up with your primary care physician in 1-2 weeks 2. Follow up with GI specialist for results of your biopsy in 1-2 weeks 3. Take Pantoprazole twice a day for 8 weeks then decrease to daily 4. Avoid foods that cause increase in acid production that include spicy, caffeine, onions, garlic, and tomatoes 5. If experiencing any concerning symptoms. please go to the nearest emergency department REFERRALS Other Referrals SuchBharti retana MD Specialty Gastroenterology Comments Office Address [id number] [address] Office NORMAN CUEVAS MD Sep 13, 2018 11:38
[2018-09-13] MEDS ORDERED: AMOX500C2 PO (16:23)
[2018-09-13] MEDS ORDERED: CLAR500T PO (16:23)
--- NOTE | 2018-09-13 16:27 | DS ---
Date/Time of Note Date/Time of Note DATE: 09/13/18 TIME: 16:17 Discharge Summary Admission/Discharge Info Admit Date/Time Sep 11, 2018 at 10:39 Discharge Date/Time Sep 13, 2018 at 14:32 Discharge Diagnosis 1. Mild esophagitis and moderate gastritis Patient Condition: Stable Consults GI- Dr. Coyle Procedures EGD Impression: Small grade 1/4 esophageal varices. Mild distal esophagitis. Moderate gastritis. Rule out H. pylori infection. Biopsies obtained. Otherwise normal EGD. Hx of Present Illness 63-year male past medical history of possible gastroparesis, who complains of generalized abdominal pain for 1 day. Patient stated the symptoms started sort of suddenly, had some nausea symptoms. No vomiting, no fevers or chills diarrhea constipation upper or lower GI bleeding, no chest pain shortness of breath. Patient describes the pain as diffuse nontender nonlocalizing with no e xacerbating alleviating factors. When the patient came in today he had a CT scan abdomen pelvis performed that did not show any acute findings. His white blood cell count was slightly elevated however at 12.3. Hospital Course Patient was admitted for assessment of GI symptoms and GI was consulted. Patient underwent gastric emptying study to assess for gastroparesis which was normal. Patient also underwent EGD which showed esophagitis and gastritis. He was continued on PPI BID and diet was advanced. GI symptoms improved and patient was tolerating regular diet without any issues. Patient was discharged home in stable condition. Biopsy results returned positive for Hpylori and patient was sent 2 weeks of triple therapy. He was instructed to follow up with Gi as outpatient. Home Meds Active Scripts Pantoprazole* (Pantoprazole*) 40 Mg Tablet., 40 MG PO BID@ for 60 Days, #120 TAB 1 Refill Prov:NORMAN CUEVAS MD 09/13/18 Hydrocodone Bit-Acetaminophen (Hydrocodone Bit-APAP) 5-325MG Tablet, 1 TAB PO Q4H PRN for .MOD PAIN 4-6 for 5 Days, #20 TAB Prov:NORMAN CUEVAS MD 09/13/18 Discontinued Reported Medications [none] Unknown Strength No Conflict Check 06/21/17 Discontinued Scripts Ondansetron (Ondansetron Odt) 4 Mg Tab.rapdis, 4 MG PO Q6H PRN for NAUSEA AND/OR VOMITING, #20 TAB Prov:CUISIAMELISSA HANDLE BENDER 06/21/17 Dicyclomine HCl (Dicyclomine HCl) 20 Mg Tablet, 1 TAB PO Q6, #20 Prov:CHIKISMELISSA HANDLE BENDER 06/21/17 Follow-up Plan 1. Follow up with your primary care physician in 1-2 weeks 2. Follow up with GI specialist for results of your biopsy in 1-2 weeks 3. Take Pantoprazole twice a day for 8 weeks then decrease to daily 4. Avoid foods that cause increase in acid production that include spicy, caffeine, onions, garlic, and tomatoes 5. If experiencing any concerning symptoms. please go to the nearest emergency department Primary Care Provider Greg Sagastume Time spent on discharge: > 30 minutes Pending Labs Laboratory Tests Test 09/13/18 04:38 White Blood Count 8.6 10^3/ul (4.8-10.8) Red Blood Count 4.93 10^6/ul (4.70-6.10) Hemoglobin 13.3 g/dl (14.0-18.0) Hematocrit 37.1 % (42.0-52.0) Mean Corpuscular Volume 75.3 fl (82.0-101.0) Mean Corpuscular Hemoglobin 27.0 pg (29.0-33.0) Mean Corpuscular Hemoglobin Concent 35.8 g/dl (32.0-37.0) Red Cell Distribution Width 14.6 % (11.5-14.5) Platelet Count 373 10^3/UL (140-415) Mean Platelet Volume 9.5 fl (7.4-10.4) Immature Granulocytes % 0.200 % (0.001-0.429) Neutrophils % 56.0 % (39.0-77.0) Lymphocytes % 27.4 % (15.0-51.0) Monocytes % 9.7 % (0.0-11.0) Eosinophils % 5.8 % (0.0-7.0) Basophils % 0.9 % (0.0-2.0) Nucleated Red Blood Cells % 0.0 /100WBC (0.0-0.0) Immature Granulocytes # 0.020 10^3/ul (0.0-0.031) Neutrophils # 4.8 10^3/ul (1.6-7.5) Lymphocytes # 2.3 10^3/ul (0.8-2.9) Monocytes # 0.8 10^3/ul (0.3-0.9) Eosinophils # 0.5 10^3/ul (0.0-0.5) Basophils # 0.1 10^3/ul (0.0-0.1) Nucleated Red Blood Cells # 0.0 10^3/ul (0.0-0.0) Sodium Level 137 mmol/L (135-144) Potassium Level 4.2 mmol/L (3.5-5.1) Chloride Level 104 mmol/L (97-110) Carbon Dioxide Level 24 mmol/L (21-31) Anion Gap 9 (5-13) Blood Urea Nitrogen 10 mg/dl (7-20) Creatinine 0.74 mg/dl (0.61-1.24) Est Glomerular Filtrat Rate mL/min > 60 mL/min (>60) Glucose Level 84 mg/dl (70-220) Calcium Level 9.3 mg/dl (8.4-10.2) NORMAN CUEVAS MD Sep 13, 2018 16:27
== END 2018-09-13 14:32 | disposition home or self-care (01) | DRG 392 ==
LOC: E/R 22:13 → MS1 09-10 05:14 → OBSVTOIN 09-11 10:39
PROVIDERS: ADMIT Hospitalist; ATTEND Internal Medicine
PROC: 0DB78ZX Excision of Stomach, Pylorus, Via Natural or Artificial Opening Endoscopic, Diagnostic (ICD-10-PCS; 2018-09-12)
PROC: 0DB68ZX Excision of Stomach, Via Natural or Artificial Opening Endoscopic, Diagnostic (ICD-10-PCS; principal; 2018-09-12 18:00)
DX: K29.70 Gastritis, unspecified, without bleeding (principal); I85.00 Esophageal varices without bleeding; B96.81 Helicobacter pylori [H. pylori] as the cause of diseases classified elsewhere; J43.2 Centrilobular emphysema; F17.200 Nicotine dependence, unspecified, uncomplicated; Z87.19 Personal history of other diseases of the digestive system
CPT/HCPCS: 36415; 71045; 74176; 78264; 80048; 80053; 80061; 81001; 83036; 83690; 83735; 84100; 84439; 84443; 85025; 85610; 85730; 88305; 88312; 93005; 94640; 94664; 96374; 96375; 96376; 97161; A9541; G0378; J0360; J1170; J1644; J2270; J2405; J2765; J7040